=== PATIENT | female | born 1965 | race Caucasian/White ===

== ENCOUNTER 2017-06-30 22:02 | Emergency (ER) | payer OTHER ==
[~2017-06-30] VITALS: Ht 152.4 cm; Wt 52.2 kg
[2017-06-30 22:20] VITALS: BP 157/84
--- NOTE | 2017-06-30 22:25 | PHYS DOC ---
Adult General Chief Complaint Chief Complaint: LACERATION/AVULSION HPI HPI Patient is a 51 year old female presents the ED complaining of toe injury times one hour ago. Patient states she was taking out the trash and a piece of glass was sticking out and cut her big toe. Describes the pain as sharp. Rates the pain as 6/10. Controlled the bleeding with pressure. Denies head/neck injury , LOC, vision changes, fever, weakness, inability to walk. Review of Systems Review of Systems Constitutional: Denies fever or chills [] Eyes: Denies change in visual acuity, redness, or eye pain [] HENT: Denies nasal congestion or sore throat [] Respiratory: Denies cough or shortness of breath [] Cardiovascular: No additional information not addressed in HPI [] GI: Denies abdominal pain, nausea, vomiting, bloody stools or diarrhea [] : Denies dysuria or hematuria [] Musculoskeletal: Denies back pain. Complains of toe injury.[] Integument: Denies rash or skin lesions [] Neurologic: Denies headache, focal weakness or sensory changes [] Endocrine: Denies polyuria or polydipsia [] All other systems were reviewed and found to be within normal limits, except as documented in this note. Current Medications Current Medications Current Medications Medications (Trade) Dose Ordered Sig/Chana Start Time Stop Time Status Last Admin Dose Admin Diphtheria/ Tetanus/Acell Pertussis (Boostrix) 0.5 ml ONCE ONCE 06/30/17 23:00 06/30/17 23:01 DC 06/30/17 22:51 0.5 ML Allergies Allergies Allergies Coded Allergies Type Severity Reaction Last Updated Verified codeine Allergy Intermediate Rash 06/30/17 Yes Physical Exam Physical Exam Constitutional: Well developed, well nourished, no acute distress, non-toxic appearance. [] HENT: Normocephalic, atraumatic, bilateral external ears normal, oropharynx moist, no oral exudates, nose normal. [] Eyes: PERRLA, EOMI, conjunctiva normal, no discharge. [] Neck: Normal range of motion, no tenderness, supple, no stridor. [] Cardiovascular:Heart rate regular rhythm, no murmur [] Lungs & Thorax: Bilateral breath sounds clear to auscultation [] Abdomen: Bowel sounds normal, soft, no tenderness, no masses, no pulsatile masses. [] Skin: Warm, dry, no erythema, no rash. [] Back: No tenderness, no CVA tenderness. [] Extremities: MILD LEFT GREAT TOE TENDERNESS. 2 CM SUPERFICIAL LACERATION. no cyanosis, no clubbing, ROM intact, no edema. [] Neurologic: Alert and oriented X 3, normal motor function, normal sensory function, no focal deficits noted. [] Psychologic: Affect normal, judgement normal, mood normal. [] Current Patient Data Vital Signs Vital Signs Date Time Temp Pulse Resp B/P (MAP) Pulse Ox O2 Delivery O2 Flow Rate FiO2 06/30/17 22:20 97.6 72 20 99 Room Air 97.6 EKG EKG [] Radiology/Procedures Radiology/Procedures [] Course & Med Decision Making Course & Med Decision Making Pertinent Labs and Imaging studies reviewed. (See chart for details) []Discussed imaging findings with patient. Tetanus updated. Cleaned and dressed. No active bleeding. Laceration repaired with Dermabond and Steri- Strips. Patient able to ambulate without pain. Discussed follow-up for wound reevaluation. Discussed reasons to return to the ED. Patient understands and agrees with plan. Dragon Disclaimer Dragon Disclaimer This electronic medical record was generated, in whole or in part, using a voice recognition dictation system. Departure Departure Impression: Primary Impression: Toe laceration Disposition: 01 HOME, SELF-CARE Condition: IMPROVED Referrals: FEROZ NAVARRO MD (PCP) Patient Instructions: Laceration Care, Adult Scripts Sulfamethoxazole/Trimethoprim (BACTRIM DS TABLET) 1 Each Tablet 1 TAB PO BID, #20 TAB Prov: SANTINO PONCE 06/30/17 Laceration/Wound Repair Laceration/Wound Repair : Wound Location: lower extremity (left toe) Wound's Depth, Shape: superficial Wound Length (cm): 2 Wound Explored: clean Irrigated w/ Saline (ccs): 500 Betadine Prep?: Yes Wound Repaired With: Steri-strips, Dermabond Progress Well tolerated. No complications. SANTINO PONCE Jun 30, 2017 22:25
[2017-06-30] MEDS ORDERED: SULF1TAB24 PO (22:40)
[2017-06-30] MEDS ORDERED: DIPHTH,PERTUSS(ACELL),TET TOX 0.5 ML DISP.SYRIN. VAX IM ONE (23:00)
--- NOTE | 2017-07-01 07:43 | RAD ---
Three-view study of the toes of the left foot History: Laceration injury of the first digit. Stepped on broken glass. Findings: No acute fracture or dislocation or osteolytic process is seen. No radiopaque foreign body is evident. IMPRESSION: No acute osseous abnormality.
== END 2017-06-30 23:02 | disposition home or self-care (01) ==
LOC: ER 22:02
DX: S91.112A Laceration without foreign body of left great toe without damage to nail, initial encounter (principal); Z88.5 Allergy status to narcotic agent; W25.XXXA Contact with sharp glass, initial encounter; Y93.89 Activity, other specified; Y99.8 Other external cause status; Y92.89 Other specified places as the place of occurrence of the external cause
CPT/HCPCS: 12001; 73660; 90471; 90715; 99284-25

== ENCOUNTER → 2018-05-11 | Day surgery (SDC) | payer OTHER ==
[~2018-05-11] VITALS: Ht 157.5 cm; Wt 46.3 kg
[~2018-05-11] MED LIST: ALPR1TAB6 PO; BUPIVACAINE MPF 0.5% 30 ML VIAL. ONE; HYDR-2758 PO; HYDROcodone/APAP 10/325 1 TAB TABLET PO ONE; IV RINGERS,LACTATED 1000ML 1,000 ML IV SCH; LIDOCAINE 1% PF 2 ML VIAL. ID PRN; LIDOCAINE 1% PF 30 ML VIAL. ONE; LIDOCAINE 2% 20 ML VIAL. ONE; MIDAZOLAM HCL/PF 2 MG/2 ML VIAL. ONE; NAPR-514 PO; ONDANSETRON PF 4 MG/2 ML VIAL. IV PRN; PROCHLORPERAZINE 10 MG/2 ML VIAL. IV PRN; SULF1TAB24 PO; TRAM50TA PO; TRAZ-85 PO; fentaNYL PF VIAL 100 MCG/2 ML VIAL IV PRN
[2018-05-11 06:44] LABS: U PREG PATIENT NEGATIVE (NEG)
--- NOTE | 2018-05-11 07:26 | DISCH ---
DISCHARGE INSTRUCTIONS Condition on Discharge Condition on Discharge: Stable Activity After Discharge Activity Instructions for Disc: Other, see below Other activity instructions: wiggle fingers and wrsit Bathing Instructions: Shower-keep dressing dry Weight Bearing Status after Di: As tolerated Diet after Discharge Diet after Discharge: Regular Wound Incision Care Wound/Incision Care: Ice to area for comfort, Keep wound/cast CDI, Keep wound elevated, Change dressing Other wound/incision instructi: change dressing in [address] after DC Call your doctor for: Concerns you may have Follow-Up Follow up with: Teofilo in 2 wks VLAD TURNER II, MD May 11, 2018 07:26
--- NOTE | 2018-05-11 08:06 | PDOC4 ---
Operative Note Operative Note Date of procedure: 05/11/2018 Surgeon: Stewart Turner Preoperative diagnosis: Right carpal tunnel syndrome Postoperative diagnosis: Same Procedure performed: Open right carpal tunnel release Anesthesia: Luke block Complications: none Tourniquet time: 25 minutes Blood loss: 2 mL Findings: normal-appearing median nerve Reason for procedure: The patient is a very pleasant female who presented to my outpatient orthopedic surgery clinic with complaint of numbness tingling and pain. Please see my notes for further details. EMG was reviewed. She had tried conservative therapy including the risk splint, anti-inflammatories, and had a positive response to a carpal tunnel injection. She has had persistent symptoms , we had a discussion of the risks, benefits, and alternatives to operative intervention and she wished to proceed. Description of procedure: Patient was greeted in the preoperative area by myself for the correct extremity was verified and marked. She was taken back to the operative suite and her antibiotics were started as she was brought back. Once in the operating room, she was transferred gently supine to the operating room table and secured the bed with all pressure points padded. She underwent successful induction of a [place] block and then sedation monitored by the anesthesiology team. We attached the arm board to the OR table. We then proceeded prep and drape right upper extremity in our usual sterile fashion and conducted our standard preoperative timeout. I then made an incision in her volar palm from her distal wrist crease into her hand through a palmar crease. I dissected subcutaneous tissue with a small hemostat, bipolar cautery was used for hemostasis. Identified the palmar fascia and incised this in line with the skin incision. I placed myself retaining retractor and identified the transverse carpal ligament and release this sharply with a scalpel. I then placed a Ragnell retractor at the distal portion of the incision, spread above and below the remaining transverse carpal ligament with my tenotomy scissors then release this completely. I then repeated this maneuver and an ulnar directed fashion to release the distal and the brachial fascia. I used the tip of the tenotomies to palpate along the course of the nerve, I was confident I had accomplished a complete release. After this, the wound was thoroughly irrigated out and the skin was closed with 3-0 nylon in a horizontal mattress fashion. The arm and hand were cleansed and dried and a sterile bulky soft dressing was applied. All counts were correct 2 prior wound closure. No complications. At the conclusion, she was awakened from her sedation and transferred gently supine to the recovery room cart and taken to the PACU in a stable and extubated condition per postoperative plan is to discharge her home. Active range of motion was encouraged at wrist and fingers. Wound care was discussed with her, her family member and given and written form. She will contact my office for any complaints or concerns, we will see her back in 2 weeks, sooner should a problem arise STEWART TURNER II, MD May 11, 2018 08:06
[2018-05-11 09:16] VITALS: BP 142/81
== END | disposition home or self-care (01) ==
LOC: SURG 06:12
PROVIDERS: ATTEND Orthopaedic Surgery Sports Medicine
DX: G56.01 Carpal tunnel syndrome, right upper limb (principal); F41.9 Anxiety disorder, unspecified; Z88.5 Allergy status to narcotic agent; Z79.899 Other long term (current) drug therapy; F17.200 Nicotine dependence, unspecified, uncomplicated
CPT/HCPCS: 64721; 81025; J0690; J2001; J2250; J3490

== ENCOUNTER 2018-07-18 10:22 | Emergency (ER) | payer OTHER ==
[~2018-07-18] VITALS: Ht 152.4 cm; Wt 47.6 kg
[~2018-07-18 10:22] MED LIST changes: -BUPIVACAINE MPF 0.5% 30 ML VIAL. ONE; -HYDR-2758 PO; +HYDR-2761 PO; -HYDROcodone/APAP 10/325 1 TAB TABLET PO ONE; -IV RINGERS,LACTATED 1000ML 1,000 ML IV SCH; -LIDOCAINE 1% PF 2 ML VIAL. ID PRN; -LIDOCAINE 1% PF 30 ML VIAL. ONE; -LIDOCAINE 2% 20 ML VIAL. ONE; -MIDAZOLAM HCL/PF 2 MG/2 ML VIAL. ONE; -ONDANSETRON PF 4 MG/2 ML VIAL. IV PRN; -PROCHLORPERAZINE 10 MG/2 ML VIAL. IV PRN; -fentaNYL PF VIAL 100 MCG/2 ML VIAL IV PRN
[2018-07-18 10:42] VITALS: BP 150/78
--- NOTE | 2018-07-18 11:36 | RAD ---
History: Right shoulder pain for 2 days, woke up with pain. Comparison: None. Findings: AP internal rotation, AP external rotation, and scapular Y view of the right shoulder, 4 images. No acute fracture is identified. The acromioclavicular joint appears widened with length of 9 mm. The coracoclavicular distance is preserved with the measuring 7 mm. Mildly low-lying acromion is seen. Impression: Widened acromioclavicular joint. Findings may represent type II AC separation. Electronically signed by: Dane Nguyen MD (07/18/2018 11:32 AM) [place] [id number]
[2018-07-18] MEDS ORDERED: HYDR-3164 PO (12:08)
--- NOTE | 2018-07-18 12:09 | PHYS DOC ---
Past Medical History Past Medical History: No Pertinent History Past Surgical History: Other Additional Past Surgical Histo: CARPAL TUNNEL RIGHT HAND, RIGHT HIP, RIGHT FACE RECONSTRUCTION Alcohol Use: None Drug Use: None Adult General Chief Complaint Chief Complaint: UPPER EXTREMITY PAIN HPI HPI Patient is a 53 year old [f__sex] who presents with [] Review of Systems Review of Systems Constitutional: Denies fever or chills [] Eyes: Denies change in visual acuity, redness, or eye pain [] HENT: Denies nasal congestion or sore throat [] Respiratory: Denies cough or shortness of breath [] Cardiovascular: No additional information not addressed in HPI [] GI: Denies abdominal pain, nausea, vomiting, bloody stools or diarrhea [] : Denies dysuria or hematuria [] Musculoskeletal: Denies back pain or joint pain [] Integument: Denies rash or skin lesions [] Neurologic: Denies headache, focal weakness or sensory changes [] Endocrine: Denies polyuria or polydipsia [] All other systems were reviewed and found to be within normal limits, except as documented in this note. Current Medications Current Medications Current Medications Medications (Trade) Dose Ordered Sig/Chana Start Time Stop Time Status Last Admin Dose Admin Acetaminophen/ Hydrocodone Bitart (Lortab 5/325) 1 tab 1X ONCE 07/18/18 12:15 07/18/18 12:16 Allergies Allergies Allergies Coded Allergies Type Severity Reaction Last Updated Verified codeine Allergy Intermediate Rash 05/11/18 Yes Physical Exam Physical Exam Constitutional: Well developed, well nourished, no acute distress, non-toxic appearance. [] HENT: Normocephalic, atraumatic, bilateral external ears normal, oropharynx moist, no oral exudates, nose normal. [] Eyes: PERRLA, EOMI, conjunctiva normal, no discharge. [] Neck: Normal range of motion, no tenderness, supple, no stridor. [] Cardiovascular:Heart rate regular rhythm, no murmur [] Lungs & Thorax: Bilateral breath sounds clear to auscultation [] Abdomen: Bowel sounds normal, soft, no tenderness, no masses, no pulsatile masses. [] Skin: Warm, dry, no erythema, no rash. [] Back: No tenderness, no CVA tenderness. [] Extremities: No tenderness, no cyanosis, no clubbing, ROM intact, no edema. [] Neurologic: Alert and oriented X 3, normal motor function, normal sensory function, no focal deficits noted. [] Psychologic: Affect normal, judgement normal, mood normal. [] Current Patient Data Vital Signs Vital Signs Date Time Temp Pulse Resp B/P (MAP) Pulse Ox O2 Delivery O2 Flow Rate FiO2 07/18/18 10:42 98.0 81 16 150/78 (102) 99 Room Air 98.0 EKG EKG [] Radiology/Procedures Radiology/Procedures [] Course & Med Decision Making Course & Med Decision Making Pertinent Labs and Imaging studies reviewed. (See chart for details) [] Dragon Disclaimer Dragon Disclaimer This electronic medical record was generated, in whole or in part, using a voice recognition dictation system. Departure Departure Impression: Primary Impression: AC separation Disposition: 01 HOME, SELF-CARE Condition: STABLE Referrals: FEROZ NAVARRO MD (PCP) Patient Instructions: Acromioclavicular Separation with [facility] Additional Instructions: Take the medication as directed. Do not drive or operate heavy machinery while taking this medication. Follow-up with your orthopedic surgeon at your scheduled appointment tomorrow morning. Scripts Hydrocodone/Apap 5-325 (NORCO 5-325 TABLET) 1 Each Tablet 1 TAB PO PRN Q6HRS PRN for PAIN, #10 TAB 0 Refills Prov: MINA BUTLER APRN 07/18/18 MINA BUTLER APRN Jul 18, 2018 12:09
[2018-07-18] MEDS ORDERED: HYDROcodone/APAP 5/325MG 1 TAB TABLET PO ONE (12:15)
== END 2018-07-18 12:14 | disposition home or self-care (01) ==
LOC: ER 10:22
DX: S43.101A Unspecified dislocation of right acromioclavicular joint, initial encounter (principal); X58.XXXA Exposure to other specified factors, initial encounter; Y93.89 Activity, other specified; Y92.89 Other specified places as the place of occurrence of the external cause; Y99.8 Other external cause status; Z88.5 Allergy status to narcotic agent
CPT/HCPCS: 73030; 99283

== ENCOUNTER 2019-12-05 11:47 | Inpatient (IN) | payer SELFPAY ==
[2019-12-05] VITALS (7 sets, daily range): BP systolic 108–179; BP diastolic 68–88
[~2019-12-05] VITALS: Ht 152.4 cm; Wt 54.4 kg
[~2019-12-05 11:47] MED LIST changes: +HYDR-3164 PO; +TRAZ-118 PO; -TRAZ-85 PO
--- NOTE | 2019-12-05 12:27 | RAD ---
PROCEDURE: ANKLE RIGHT 3V STUDY DATE: 12/05/2019 CLINICAL INDICATION / HISTORY: Right ankle pain and swelling. TECHNIQUE: Right ankle 3 views. COMPARISON: None FINDINGS: An acute displaced bimalleolar fracture of the right ankle is present with widening of the medial ankle mortise and extension of the lateral malleolar fracture line from the level of the tibial plafond proximally, resembling a Briseno type B fracture. There is associated circumferential soft tissue swelling. An acute fracture of the posterior malleolus is also present. IMPRESSION: Acute mildly displaced trimalleolar right ankle fracture with associated soft tissue swelling. Electronically signed by: Arleth Chan MD (12/05/2019 12:24 PM) [id number]
[2019-12-05] MEDS ORDERED: HYDROcodone/APAP 5/325MG 1 TAB TABLET PO ONE (12:30)
[2019-12-05] MEDS ORDERED: MORPHINE SULFATE 4 MG/ML VIAL. IV PRN (13:00)
[2019-12-05] MEDS ORDERED: ONDANSETRON PF 4 MG/2 ML VIAL. IV PRN (13:00)
--- NOTE | 2019-12-05 13:01 | PHYS DOC ---
Past Medical History Past Medical History: No Pertinent History (AMANDO HA APRN) Past Surgical History: Other Additional Past Surgical Histo: CARPAL TUNNEL RIGHT HAND, RIGHT HIP, RIGHT FACE RECONSTRUCTION (AMANDO HA APRN) Smoking Status: Current Every Day Smoker Alcohol Use: None Drug Use: None (AMANDO HA APRN) General Adult EDM: Chief Complaint: ANKLE PROBLEM HPI: HPI: Patient is a 54 year old female who presents to the emergency department with complaints of right ankle pain and swelling and inability to bear weight after tripping over a trash bag today at approximately 9:00. Patient denies any medical history. She currently P rates her pain a 10 out of 10 on the pain scale, she denies any alleviating factors. Patient has not taken anything for pain relief prior to arrival. (AMANDO HA APRN) Review of Systems: Review of Systems: Constitutional: Denies fever or chills. [] Eyes: Denies change in visual acuity. [] HENT: Denies nasal congestion or sore throat. [] Respiratory: Denies cough or shortness of breath. [] Cardiovascular: Denies chest pain or edema. [] GI: Denies abdominal pain, nausea, vomiting, or diarrhea. [] : Denies dysuria. [] Musculoskeletal: See HPI Integument: Denies rash.; Reports bruising and swelling to right ankle [] Neurologic: Denies focal weakness or sensory changes. [] Psychiatric: Denies depression or anxiety. [] (AMANDO HA APRN) Heart Score: Risk Factors: Risk Factors: DM, Current or recent (<one month) smoker, HTN, HLP, family history of CAD, obesity. Risk Scores: Score 0 - 3: 2.5% MACE over next 6 weeks - Discharge Home Score 4 - 6: 20.3% MACE over next 6 weeks - Admit for Clinical Observation Score 7 - 10: 72.7% MACE over next 6 weeks - Early Invasive Strategies (AMANDO HA APRN) Current Medications: Current Medications Medications (Trade) Dose Ordered Sig/Chana Start Time Stop Time Status Last Admin Dose Admin Acetaminophen/ Hydrocodone Bitart (Lortab 5/325) 1 tab 1X ONCE 12/05/19 12:30 12/05/19 12:31 DC 12/05/19 12:42 1 TAB (AMANDO HA APRN) Allergies: Allergies: Allergies Coded Allergies Type Severity Reaction Last Updated Verified codeine Allergy Intermediate Rash 12/05/19 Yes (AMANDO HA APRN) Physical Exam: PE: Constitutional: Well developed, well nourished, no acute distress, non-toxic appearance. [] HENT: Normocephalic, atraumatic, bilateral external ears normal,nose normal. [] Eyes: PERRLA, EOMI, conjunctiva normal, no discharge. [] Neck: Normal range of motion, no stridor. [] Cardiovascular:Heart rate regular rhythm Lungs & Thorax: Respirations even and unlabored, no retractions, no respiratory distress Skin: Warm, dry Extremities: RLE: diffuse TTP with limited ROM due to pain/injury; 2+ edema, 2+ pedal pulse, sensation intact, no cyanosis Neurologic: Alert and oriented X 3, no focal deficits noted. [] Psychologic: Affect normal, judgement normal, mood normal. [] (AMANDO HA APRN) Current Patient Data: Vital Signs: Vital Signs Date Time Temp Pulse Resp B/P (MAP) Pulse Ox O2 Delivery O2 Flow Rate FiO2 12/05/19 12:01 97.6 85 16 153/68 (96) 97 Room Air 97.6 (AMANDO HA APRN) EKG: EKG: [] (AMANDO HA APRN) Radiology/Procedures: Radiology/Procedures: PROCEDURE: ANKLE RIGHT 3V PROCEDURE: ANKLE RIGHT 3V STUDY DATE: 12/05/2019 CLINICAL INDICATION / HISTORY: Right ankle pain and swelling. TECHNIQUE: Right ankle 3 views. COMPARISON: None FINDINGS: An acute displaced bimalleolar fracture of the right ankle is present with widening of the medial ankle mortise and extension of the lateral malleolar fracture line from the level of the tibial plafond proximally, resembling a Briseno type B fracture. There is associated circumferential soft tissue swelling. An acute fracture of the posterior malleolus is also present. IMPRESSION: Acute mildly displaced trimalleolar right ankle fracture with associated soft tissue swelling.[] (AMANDO HA APRN) Course & Med Decision Making: Course & Med Decision Making Pertinent Labs and Imaging studies reviewed. (See chart for details) 1240-spoke with Dr. Cary and advised of x-ray findings. Will place patient in a posterior short leg with stirrup splint and admit to primary care doctor. Pt will be kept NPO , her last intake was at 1000 1247-spoke with Dr. Gray who is the admitting physician, and care was assumed following discussion of patient. Patient's vital signs stable. Patient remains afebrile, appears nontoxic, respirations even and unlabored. Patient will be admitted to the med/surg floor. Patient's case and plan of care also discussed with Dr. iGvens [] (AMANDO HA APRN) Dragon Disclaimer: Terry Disclaimer: This electronic medical record was generated, in whole or in part, using a voice recognition dictation system. 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 Hand-Made Type: orthoglass (posterior short leg with stirrup) Pre-Proc Neuro Vasc Exam: normal Post-Proc Neuro Vasc Exam: normal, unchanged from pre-exam (AAMNDO HA APRN) AMANDO HA APRN Dec 05, 2019 13:01 MAKEDA GIVENS DO Dec 08, 2019 07:21
[2019-12-05] MEDS ORDERED: MORPHINE SULFATE 4 MG/ML VIAL. ONE (13:04)
[2019-12-05] MEDS ORDERED: ONDANSETRON PF 4 MG/2 ML VIAL. IV ONE (13:15)
[2019-12-05] MEDS ORDERED: MORPHINE SULFATE 4 MG/ML VIAL. IV ONE (13:15)
[2019-12-05 13:23] LABS: BASO # 0.1 x10^3/uL (0.0-0.2); BASO % 1 % (0-3); EOS # 0.1 x10^3/uL (0.0-0.7); EOS % 0 % (0-3); HEMOGLOBIN 14.4 g/dL (12.0-15.5); LYMPH # 1.1 x10^3/uL (1.0-4.8); LYMPH % 7 % (24-48); MEAN CORPUSCULAR HEMOGLOBIN 31 pg (25-35); MEAN CORPUSCULAR HGB CONC 34 g/dL (31-37); MEAN CORPUSCULAR VOLUME 93 fL (79-100); MONO # 0.6 x10^3/uL (0.0-1.1); MONO % 4 % (0-9); NEUT # 13.5 x10^3/uL (1.8-7.7); NEUT % 88 % (31-73); PLATELET COUNT 402 x10^3/uL (140-400); RED BLOOD COUNT 4.65 x10^6/uL (3.50-5.40); RED CELL DISTRIBUTION WIDTH 13.5 % (11.5-14.5); WHITE BLOOD COUNT 15.4 x10^3/uL (4.0-11.0)
[2019-12-05 13:30] LABS: CALCIUM 9.1 mg/dL (8.5-10.1); CREATININE 0.6 mg/dL (0.6-1.0); GFR 104.6; POTASSIUM 4.2 mmol/L (3.5-5.1)
[2019-12-05 13:41] LABS: % BANDS 1 % (0-9); % EOS 1 % (0-5); % LYMPHS 6 % (24-48); % MONOS 3 % (0-10); % SEGS 89 % (35-66)
[2019-12-05 13:43] LABS: PLT ESTIMATE ADEQUATE (ADEQUATE); TOXIC GRANULATION SLIGHT
[2019-12-05] MEDS ORDERED: CITA20TA9 PO (15:32)
[2019-12-05] MEDS ORDERED: DEXAMETHASONE SOD PHOS 4 MG/ML VIAL ONE (16:05)
[2019-12-05] MEDS ORDERED: ONDANSETRON PF 4 MG/2 ML VIAL. ONE (16:05)
[2019-12-05] MEDS ORDERED: LIDOCAINE 2% PF 5 ML VIAL. ONE (16:05)
[2019-12-05] MEDS ORDERED: PROPOFOL 20 ML IV ONE (16:05)
[2019-12-05] MEDS ORDERED: GLYCOPYRROLATE 1 MG/5 ML VIAL. ONE (16:05)
[2019-12-05] MEDS ORDERED: ROCURONIUM 50 MG/5 ML VIAL. ONE (16:05)
[2019-12-05] MEDS ORDERED: NEOSTIGMINE METHYLSULFATE 5 MG/5 ML SYRINGE. ONE (16:05)
[2019-12-05] MEDS ORDERED: SUCCINYLCHOLINE 200 MG/10 ML VIAL. ONE (16:05)
[2019-12-05] MEDS ORDERED: fentaNYL PF VIAL 100 MCG/2 ML VIAL ONE ×2 (16:05→18:02)
[2019-12-05] MEDS ORDERED: MIDAZOLAM HCL/PF 2 MG/2 ML VIAL. ONE (16:06)
[2019-12-05] MEDS ORDERED: ceFAZolin SODIUM IV Push 1 GM VIAL. IVP PRN (17:45)
--- NOTE | 2019-12-05 17:59 | NUR ---
Pt. down to OR via bed per JOYCE Castaneda and JOYCE Cota.
[2019-12-05 18:12] LABS: U PREG PATIENT NEGATIVE (NEG)
[2019-12-05] MEDS: IV RINGERS,LACTATED 1000ML 1,000 ML IV SCH ×2 (18:14→21:22)
[2019-12-05] MEDS ORDERED: fentaNYL PF VIAL 100 MCG/2 ML VIAL IV PRN ×2 (18:15)
[2019-12-05] MEDS ORDERED: PROCHLORPERAZINE 10 MG/2 ML VIAL. IV PRN (18:15)
[2019-12-05] MEDS ORDERED: fentaNYL PF VIAL 100 MCG/2 ML VIAL IVP PRN ×2 (18:15→23:00)
[2019-12-05] MEDS ORDERED: SEVOFLURANE 61 TO 120 MINUTES. IH ONE (20:03)
--- NOTE | 2019-12-05 20:58 | PDOC4 ---
Operative Note Operative Note Date of surgery: 12/05/2019 Preoperative diagnosis: Displaced bimalleolar right ankle fracture Postoperative diagnosis: Same Operative procedure: Operative reduction internal fixation right bimalleolar ankle fracture Surgeon: Raeann Anesthesia: General Estimated blood loss: 50 cc Complications: None Operative indications: Please see my dictated orthopedic consultation of today for detailed operative indications Operative text: Patient was identified procedure verified patient placed in the supine position on the operating table. After adequate amounts of general anesthesia were administered the right lower extremity was prepped and draped in standard sterile fashion with a thigh tourniquet. After timeout was performed patient procedure identified and verified the right lower extremity was exsanguinated by Esmarch bandage tourniquet inflated to 250 mmHg a curvilinear incision was made centered over the medial malleolus subperiosteal dissection carried out and with the fracture reduced anatomically a total of 2 guidewires were placed across the fracture site cortices were drilled and 40 mm half threaded 4.0 cannulated screws were placed obtaining excellent compression and anatomic reduction of the medial malleolus fragment. A lateral incision was carried out down to the distal fibula subperiosteal dissection carried out anatomic reduction obtained and a 6-hole Naldo distal fibular locking plate was placed and an initial single bicortical 3.5 millimeter screw for initial fixation distal locking screws were placed of appropriate length under fluoroscopic guidance and the remainder of the 3.5 mm shaft screws were placed proximally with excellent anatomic mortise reduction noted on multiple flu oroscopic views and hardware placement in length verified. Irrigation carried out with normal saline solution subcutaneous closure with buried Vicryl suture skin closed with nato sterile dressings were applied followed by a well- padded posterior splint toes were noted to be warm pink following deflation of the tourniquet patient was returned to recovery room in stable condition having tolerated procedure well DEMOND AMEZCUA MD Dec 05, 2019 20:58
[2019-12-05] MEDS ORDERED: MORPHINE SULFATE 2 MG/ML VIAL. ONE (21:36)
[2019-12-05] MEDS ORDERED: MORPHINE SULFATE 2 MG/ML VIAL. IV ONE (22:00)
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
--- NOTE | 2019-12-05 22:10 | NUR ---
Patient arrived from PACU in hysterics and inconsolable, crying and yelling stating, "It hurts worse than before, it won't stop". HYDROGENATION STILL OPERATOR administered 1x dose of morphine prior to transport to unit and patient still rating pain at 10/10. Patient informed that morphine dose accessible every 2 hours as needed for pain and told when next dose available. This nurse attempted to educate patient on opioid medication and non-opioid alternatives to pain management, no evidence of learning noted at this time. Patient panicking at this time, anxiety medication administered and patient encouraged to focus on breathing and take deep breaths . RLE remains elevated and ice applied to site. Patient repositioned in bed, given boxed lunch and water, call light within reach and no other needs voiced at this time.
[2019-12-05] MEDS: ALPRAZolam 1 MG TABLET PO PRN (22:17)
[2019-12-05] MEDS ORDERED: traZODone 50 MG TABLET. PO SCH (22:30)
[2019-12-05] MEDS ORDERED: POLYETHYLENE GLYCOL 3350 17 GM PACKET. PO PRN (23:00)
[2019-12-05] MEDS ORDERED: MORPHINE SULFATE 2 MG/ML VIAL. IVP PRN (23:00)
[2019-12-05] MEDS ORDERED: DEXTROSE 50% 25 GM / 50ML DISP.SYRIN. IV PRN (23:00)
[2019-12-05] MEDS ORDERED: traMADol 50 MG TABLET PO PRN (23:00)
[2019-12-05] MEDS ORDERED: ONDANSETRON PF 4 MG/2 ML VIAL. IVP PRN (23:00)
[2019-12-05] MEDS: oxyCODONE IR 5 MG TABLET PO PRN (23:14)
--- NOTE | 2019-12-05 23:18 | NUR ---
Per patient request, family member Ulises notified of post-op status and provided with patient's room number.
[2019-12-06 00:45] VITALS: BP 135/71
[2019-12-06] MEDS: ceFAZolin SODIUM IV Push 1 GM VIAL. IVP SCH ×3 (01:22→13:07)
[2019-12-06 01:45] VITALS: BP 132/72
[2019-12-06 03:00] VITALS: BP 130/70
[2019-12-06 04:15] LABS: HEMATOCRIT 43.4 % (36.0-47.0); HEMOGLOBIN 14.2 g/dL (12.0-15.5)
[2019-12-06] MEDS: oxyCODONE IR 5 MG TABLET PO PRN (05:43)
[2019-12-06] MEDS ORDERED: MAGNESIUM HYDROXIDE 2,400 MG/30 ML ORAL.SUSP. PO PRN (06:00)
[2019-12-06 07:00] VITALS: BP 136/70
[2019-12-06] MEDS ORDERED: ASPIRIN 325 MG TABLET PO SCH (08:00)
[2019-12-06] MEDS: HYDROcodone/APAP 7.5/325MG 1 TAB TABLET PO PRN ×2 (08:23→16:41)
--- NOTE | 2019-12-06 08:32 | HP ---
ADMIT DATE: CHIEF COMPLAINT AND HISTORY OF PRESENT ILLNESS: This 54-year-old white female is well known from followup in my office. The patient was taking out trash on the day of admission at an apartment for her friend. A trash bag full of apparently beer bottles were there, where she stepped accidentally on it, twisting her ankle causing trimalleolar fracture of the right ankle. She was unable to walk afterwards, brought to the Emergency Room where she has already had surgery by Dr. Cary late yesterday afternoon. PAST MEDICAL HISTORY: Remarkable for ongoing depression and anxiety symptoms. PAST SURGICAL HISTORY: Remarkable for prior right carpal tunnel, right hip surgery, right facial reconstruction. SOCIAL HISTORY: She is an everyday smoker, no alcohol, no drugs. FAMILY HISTORY: Noncontributory. MEDICATIONS: Brought with the patient, listed on the computer and have been addressed. ALLERGIES: SHE IS ALLERGIC TO CODEINE. REVIEW OF SYSTEMS: As mentioned above. PHYSICAL EXAMINATION: GENERAL: She is a well-developed, well-nourished white female, appearing in no acute distress, lying in bed. VITAL SIGNS: Stable. She is afebrile. HEAD, EYES, EARS, NOSE AND THROAT: Unremarkable. NECK: Supple, without adenopathy or thyromegaly. CHEST: Clear to auscultation and percussion. HEART: Regular rate and rhythm without S3, S4 or murmur. ABDOMEN: Soft, nontender, without hepatosplenomegaly or masses. EXTREMITIES: Reveal right ankle to be in a splint and dressed. Neurovascularly, the foot is intact. NEUROLOGIC: She is intact. IMPRESSION: Fall with a right trimalleolar fracture, status post open reduction and internal fixation. PLAN: Per Ortho. At this point in time, I did discuss with them and they are talking about possibly getting around even later today, which would be okay as long as she understands the restrictions and make sure that she is able to get around. FEROZ NAVARRO MD DR: SOBIA/cielo JOB#: [id number] / [id number]
[2019-12-06] MEDS ORDERED: SENNOSIDES/DOCUSATE 8.6/50MG TABLET. PO SCH (09:00)
[2019-12-06] MEDS: ALPRAZolam 1 MG TABLET PO PRN (09:49)
[2019-12-06 11:00] VITALS: BP 137/68
--- NOTE | 2019-12-06 11:45 | NUR ---
SW following. Discussed with RN, pt from home. PT recommending home. [facility] following for self pay status. SW will continue to follow. Anticipate possible discharge home with self care.
--- NOTE | 2019-12-06 12:25 | NUR ---
PATIENT UP AND AMBULATING IN THE HALLWAY WITH USE OF WALKER AND ASSIST OF PHYSICAL THERAPY, EMOTIONAL SUPPORT GIVEN. PHYSICAL THERAPY INFORMED THIS WRITE THAT PATIENT COULD BE DISCHARGED TO HOME FROM THEIR STANDPOINT BUT SHE WOULD NEED A WALKER, WILL NOTIFY THE NURSING REAL ESTATE INSTRUCTOR.
[2019-12-06 15:00] VITALS: BP 140/66
[2019-12-06] MEDS ORDERED: BISACODYL 10 MG SUPP.RECT. PR PRN (16:00)
--- NOTE | 2019-12-06 16:25 | DS ---
DATE OF DISCHARGE: 12/06/2019 PRIMARY DIAGNOSIS: Fall with closed trimalleolar fracture of the right ankle. ADDITIONAL DIAGNOSES: Anxiety, depression. CHIEF COMPLAINT AND HISTORY OF PRESENT ILLNESS: This 54-year-old white female who slipped on a garbage bag full of beer bottle while taking out of her neighbors trash, sustaining a trimalleolar fracture of her right ankle. SUMMARY OF STAY: The patient was admitted, initially splinted, taken to surgery on the day of admission with open reduction and internal fixation of the same by Dr. Cary. His feeling that she could be dismissed with a walker with instructions prior to discharge. On the day of discharge and this was accomplished. DISPOSITION: The patient is discharged home. DIET: Regular. ACTIVITY: Per Ortho, walker for home use. DISCHARGE MEDICATIONS: Listed on the med rec and have been addressed. FEROZ NAVARRO MD DR: SOBIA/cielo JOB#: [id number] / [id number]
--- NOTE | 2019-12-06 17:40 | NUR ---
DISCHARGE INSTRUCTIONS GIVEN, QUESTIONS AND CONCERNS ANSWERED, PATIENT VERBALIZED UNDERSTANDING OF DISCHARGE INFORMATION INCLUDING TAKING ALL MEDICATIONS INSTRUCTED AND FOLLOWING UP WITH DR. AMEZCUA AND HER PRIMARY PROVIDER INSTRUCTED, SALINE LOCK REMOVED FROM RIGHT AC PER STAFF ASSISTANT PRIOR TO DISCHARGE, BAND AID APPLIED.
--- NOTE | 2019-12-06 17:50 | NUR ---
PATIENT LEAVES THE UNIT PER W/C, EMOTIONAL SUPPORT GIVEN, FOLLW UP APPOINTMENTS ENCOURAGED.
== END 2019-12-06 17:50 | disposition home or self-care (01) | DRG 494 ==
LOC: ER 11:47 → 4 NORTH 12:59
PROVIDERS: ADMIT Family Medicine; ATTEND Family Medicine
PROC: 0QSJ04Z Reposition Right Fibula with Internal Fixation Device, Open Approach (ICD-10-PCS; 2019-12-05)
PROC: 0QSG04Z Reposition Right Tibia with Internal Fixation Device, Open Approach (ICD-10-PCS; 2019-12-05)
PROC: 2W3LX1Z Immobilization of Right Lower Extremity using Splint (ICD-10-PCS; principal; 2019-12-05 18:30)
DX: S82.851A Displaced trimalleolar fracture of right lower leg, initial encounter for closed fracture (principal); F17.210 Nicotine dependence, cigarettes, uncomplicated; F32.9 Major depressive disorder, single episode, unspecified; F41.9 Anxiety disorder, unspecified; G56.01 Carpal tunnel syndrome, right upper limb; Z88.5 Allergy status to narcotic agent; W18.39XA Other fall on same level, initial encounter; Y93.89 Activity, other specified; Y92.89 Other specified places as the place of occurrence of the external cause; Y99.8 Other external cause status
CPT/HCPCS: 29515; 36415; 73610; 76000; 80048; 81025; 85007; 85014; 85018; 85025; 96374; 96375; 99285; A7015; C1713; J0330; J0690; J1100; J2250; J2270; J2405; J2704; J2710; J3010; J3490; J7120; 97535; G0378